=== PATIENT | female | born 1960 | race African-American/Black ===

== ENCOUNTER 2016-09-22 18:33 | Emergency (ER) | payer OTHER ==
[~2016-09-22] VITALS: Ht 170.2 cm; Wt 90.0 kg
[~2016-09-22 18:33] MED LIST: BUSP10TA2 PO; HYDR-902 PO; IBUP-1542 PO; NITR-58 PO; ONDA4TAB14 PO; QUET100T PO
[2016-09-22 18:39] VITALS: Ht 170.2 cm; Wt 90.0 kg
[2016-09-22] MEDS ORDERED: IBUP-1542 PO (19:35)
[2016-09-22] MEDS ORDERED: HYDR-902 PO (19:35)
[2016-09-22 20:01] VITALS: BP 110/70; PULSE 88; RESP 16
--- NOTE | 2016-09-22 20:29 | ERD ---
ER Documentation Chief Complaint Date/Time DATE: 09/22/16 TIME: 20:27 Chief Complaint R arm pain x 2 weeks; denies falling/injury HPI Patient is a 48-year-old female with back pain who presents with right-sided arm pain. She has had right-sided arm pain for the past 2 weeks. She is right- handed. She has pain with movement and the pain has been constant. She denies fevers or swelling. She tried ibuprofen. She has neck pain as well and feels the pain radiating from her neck into her arm. She has no trauma recently. She has not called her primary doctor for this as of yet. Upon review of old medical records the patient one previous visit to the ER in 2016. ROS All systems reviewed and are negative except as per history of present illness. Medications Home Meds Active Scripts Hydrocodone/Acetaminophen ([place] 10-325 Tablet) 1 Each Tablet, 1 TAB PO Q6H Y for PAIN, #7 TAB Prov:MADELYN MAYER MD 09/22/16 Ibuprofen* (Motrin*) 600 Mg Tab, 600 MG PO Q8, #30 TAB Prov:MADELYN MAYER MD 09/22/16 Hydrocodone/Acetaminophen ([place] 10-325 Tablet) 1 Each Tablet, 1 TAB PO Q6H Y for PAIN, #7 TAB Prov:MADELYN MAYER MD 01/28/16 Ibuprofen* (Motrin*) 600 Mg Tab, 600 MG PO Q6H Y for PAIN AND OR ELEVATED TEMP, #30 TAB Prov:MADELYN MAYER MD 01/28/16 Ondansetron (Ondansetron Odt) 4 Mg Tab.rapdis, 4 MG PO Q6H Y for NAUSEA AND/OR VOMITING, #30 TAB Prov:MADELYN MAYER MD 01/28/16 Nitrofurantoin Monohyd Macrocr* (Macrobid*) 100 Mg Capsr, 100 MG PO BID for 7 Days, CAP Prov:MADELYN MAYER MD 01/28/16 Reported Medications Buspirone Hcl* (Buspirone Hcl*) 10 Mg Tab, 15 MG PO BID, TAB 01/28/16 Quetiapine Fumarate* (Seroquel*) 100 Mg Tablet, 600 MG PO HS Y for SLEEP, #30 TAB 01/28/16 Allergies Allergies: Coded Allergies: No Known Allergy (Unverified , 01/28/16) PMhx/Soc Anesthesia Reaction: No Hx Neurological Disorder: No Hx Respiratory Disorders: No Hx Cardiac Disorders: Yes (htn) Hx Psychiatric Problems: No Hx Miscellaneous Medical Probl: Yes (dm) Hx Alcohol Use: No Hx Substance Use: No Hx Tobacco Use: Yes Smoking Status: Light tobacco smoker FmHx Family History: No diabetes Physical Exam Vitals Vital Signs Date Time Temp Pulse Resp B/P Pulse Ox O2 Delivery O2 Flow Rate FiO2 09/22/16 20:01 88 16 110/70 99 Room Air 09/22/16 18:39 98.3 92 20 105/70 99 Physical Exam Const: No acute distress Head: Atraumatic Eyes: Normal Conjunctiva ENT: Normal External Ears, Nose and Mouth. Neck: Full range of motion..~ No meningismus. Resp: Clear to auscultation bilaterally Cardio: Regular rate and rhythm, no murmurs Abd: Soft, non tender, non distended. Normal bowel sounds Skin: No petechiae or rashes Back: No midline or flank tenderness Ext: No cyanosis, or edema, no swelling or mass or deformity noted, pulses 2 + in bilateral upper extremities Neur: Awake and alert, all nerve roots of the right upper extremity are intact without difficulty with movement, sensation intact Psych: Normal Mood and Affect Procedures/MDM Patient is a 48-year-old female presents with right upper arm pain and neck pain. I believe this is likely cervical radiculopathy. I doubt DVT or arterial ischemia. There is no sign of infection. She has had no trauma and I doubt fracture dislocation. I believe outpatient management is appropriate. The patient was to follow-up with her primary doctor within 24-48 hours. She will be given a prescription for ibuprofen and [place]. Departure Diagnosis: Primary Impression: Cervical radiculopathy Additional Impressions: Pain of right arm Bilateral arm pain Condition: Fair Patient Instructions: Radiculopathy, Cervical Referrals: [facility]UD[facility] SAUNDERS Additional Instructions: Call your primary care doctor TOMORROW for an appointment during the next 1-2 days.See the doctor sooner or return here if your condition worsens before your appointment time. MADELYN MAYER MD Sep 22, 2016 20:29
== END 2016-09-22 19:59 | disposition home or self-care (01) ==
LOC: FTE 18:33
DX: M54.12 Radiculopathy, cervical region (principal); M79.602 Pain in left arm; I10 Essential (primary) hypertension; F17.210 Nicotine dependence, cigarettes, uncomplicated
CPT/HCPCS: 99283

== ENCOUNTER 2016-10-16 13:03 | Emergency (ER) | payer OTHER ==
[~2016-10-16] VITALS: Ht 165.1 cm; Wt 89.0 kg
[2016-10-16 13:07] VITALS: Ht 165.1 cm; Wt 89.0 kg
[2016-10-16] MEDS ORDERED: KETOROLAC 60 MG INJ IM STA (13:44)
--- NOTE | 2016-10-16 15:33 | RADRPT ---
PROCEDURE: XR Cervical Spine. CLINICAL INDICATION: 56-year-old female with neck pain. TECHNIQUE: AP, lateral and odontoid views of the cervical spine were performed. The images were re viewed on a PACS workstation. COMPARISON: None. FINDINGS: The odontoid process and lateral masses are unremarkable. There is straightening of the cervical cu rvature. There is disk space narrowing with ventral and dorsal spondylosis at C3-4. There is disk space narrowing with ventral bridging osteophytes at C4-5. There is disk space narrowing with moder ate ventral and mild dorsal spondylosis at C5-6. There is moderate ventral spondylosis at C6-7. Th e neural canal, articular facets, lamina and spinous processes are normal. IMPRESSION: 1. Osteoarthritis of the cervical spine with reversal of the cervical curvature which may reflect pa raspinal musculature spasm. RPTAT:AAJJ Physician Brigette Date Time Electronically viewed and signed by Clayton Erickson Physician on 10/16/2016 15:33 AURY/
--- NOTE | 2016-10-16 15:36 | RADRPT ---
PROCEDURE: Right humerus x-ray CLINICAL INDICATION: pain TECHNIQUE: Two views of the right humerus were obtained. COMPARISON: None FINDINGS: There is normal mineralization. Two K-wires and a cerclage wire traverse the proximal ulna / olecranon. No acute fracture, dislocation, or joint effusion is seen. IMPRESSION: 1. Two K-wires and a cerclage wire traverse the proximal ulna / olecranon. 2. No acute fracture, dislocation, or joint effusion is seen. RPTAT: QQ Physician Erica Date Time Electronically viewed and signed by Physician Erica on 10/16/2016 15:35 RC/
[2016-10-16] MEDS ORDERED: TRAM50TA2 PO (15:41)
--- NOTE | 2016-10-16 16:43 | ERD ---
ER Documentation Chief Complaint Date/Time DATE: 10/16/16 TIME: 16:38 Chief Complaint Complains of arm pain x 4 weeks HPI This is a 56-year-old female that presents to the ER with right arm pain that started a month ago. Patient came to the ER and was sent home with [place], she states that she still continues to feel the pain across her upper arm. Patient states that it is difficult for her to comb her hair. Patient denies any shoulder pain. She does admit to some minor continued neck pain. Patient denies any trauma to her neck, shoulder, elbow. Patient denies any numbness or tingling of her upper extremity. She denies any fevers or chills. It is constant and described as throbbing in quality it is nonradiating. ROS 12 point review of systems was done, all negative except per HPI. Medications Home Meds Active Scripts Tramadol HCl (Tramadol HCl) 50 Mg Tablet, 50 MG PO Q4 Y for PAIN, #20 TAB Prov:CORONA DIOP 10/16/16 Hydrocodone/Acetaminophen ([place] 10-325 Tablet) 1 Each Tablet, 1 TAB PO Q6H Y for PAIN, #7 TAB Prov:MADELYN MAYER MD 09/22/16 Ibuprofen* (Motrin*) 600 Mg Tab, 600 MG PO Q8, #30 TAB Prov:MADELYN MAYER MD 09/22/16 Hydrocodone/Acetaminophen ([place] 10-325 Tablet) 1 Each Tablet, 1 TAB PO Q6H Y for PAIN, #7 TAB Prov:MADELYN MAYER MD 01/28/16 Ibuprofen* (Motrin*) 600 Mg Tab, 600 MG PO Q6H Y for PAIN AND OR ELEVATED TEMP, #30 TAB Prov:MADELYN MAYER MD 01/28/16 Ondansetron (Ondansetron Odt) 4 Mg Tab.rapdis, 4 MG PO Q6H Y for NAUSEA AND/OR VOMITING, #30 TAB Prov:MADELYN MAYER MD 01/28/16 Nitrofurantoin Monohyd Macrocr* (Macrobid*) 100 Mg Capsr, 100 MG PO BID for 7 Days, CAP Prov:MADELYN MAYER MD 01/28/16 Reported Medications Buspirone Hcl* (Buspirone Hcl*) 10 Mg Tab, 15 MG PO BID, TAB 01/28/16 Quetiapine Fumarate* (Seroquel*) 100 Mg Tablet, 600 MG PO HS Y for SLEEP, #30 TAB 01/28/16 Allergies Allergies: Coded Allergies: No Known Allergy (Unverified , 10/16/16) PMhx/Soc Anesthesia Reaction: No Hx Neurological Disorder: No Hx Respiratory Disorders: No Hx Cardiac Disorders: Yes (htn) Hx Psychiatric Problems: Yes (SCHIZOPHRENIA ) Hx Miscellaneous Medical Probl: Yes (dm) Hx Alcohol Use: No Hx Substance Use: No Hx Tobacco Use: Yes Smoking Status: Never smoker Physical Exam Vitals Vital Signs Date Time Temp Pulse Resp B/P Pulse Ox O2 Delivery O2 Flow Rate FiO2 10/16/16 13:07 98.4 94 20 120/66 99 Physical Exam GENERAL: The patient is well developed and appropriate for usual state of health , in no apparent distress. HEENT: Atraumatic. Neck: Patient is not tender to palpation along the C-spine, no crepitus no step- offs. No ecchymosis or areas of deformity. CHEST: Clear to auscultation bilaterally. There are no rales, wheezes or rhonchi. HEART: Regular rate and rhythm. No murmurs, clicks, rubs or gallops. ABDOMEN: Soft, nontender and nondistended. Good bowel sounds. No rebound or guarding. No gross peritonitis. No gross organomegaly or masses. No Mcfarland sign or McBurney point tenderness. BACK: No midline or flank tenderness. EXTREMITIES: Equal pulses bilaterally. There is no peripheral clubbing, cyanosis or edema. No focal swelling or erythema. Full range of motion. Grossly neurovascularly intact. Patient is tender to palpation to the proximal right humerus. She has full and nonpainful range of motion of the shoulder. Negative drop arm test. NEURO: Alert and oriented. Cranial nerves II through XII are intact. Motor strength in all 4 extremities with 5/5 strength. Sensation grossly intact. Normal speech and gait. SKIN: There is no apparent rash or petechia. The skin is warm and dry. Results 24 hrs Current Medications Medications (Trade) Dose Ordered Sig/Johnna Route PRN Reason Start Time Stop Time Status Last Admin Dose Admin Ketorolac Tromethamine (Toradol) 60 mg ONCE STAT IM 10/16/16 13:44 10/16/16 13:45 DC 10/16/16 14:20 [facility] [id number] [place] [id number] Radiology Main Line: [phone] DIAGNOSTIC IMAGING REPORT Patient: AGUSTIN BURGOS : 1960 Age: 56 Sex: F MR #: [id number] DOS: 10/16/16 0000 Ordering MD: CORONA DIOP PA-C Location: [facility] Room/Bed: PROCEDURE: XR Cervical Spine. CLINICAL INDICATION: 56-year-old female with neck pain. TECHNIQUE: AP, lateral and odontoid views of the cervical spine were performed. The images were reviewed on a PACS workstation. COMPARISON: None. FINDINGS: The odontoid process and lateral masses are unremarkable. There is straightening of the cervical curvature. There is disk space narrowing with ventral and dorsal spondylosis at C3-4. There is disk space narrowing with ventral bridging osteophytes at C4-5. There is disk space narrowing with moderate ventral and mild dorsal spondylosis at C5-6. There is moderate ventral spondylosis at C6-7. The neural canal, articular facets, lamina and spinous processes are normal. IMPRESSION: 1. Osteoarthritis of the cervical spine with reversal of the cervical curvature which may reflect paraspinal musculature spasm. RPTAT:AAJJ Physician Brigette Date Time Electronically viewed and signed by Clayton Erickson Physician on 10/16/2016 15:33 JM/ CC: CORONA DIOP [place] [id number] Radiology Main Line: [phone] DIAGNOSTIC IMAGING REPORT Patient: AGUSTIN BURGOS : 1960 Age: 56 Sex: F MR #: [id number] DOS: 10/16/16 0000 Ordering MD: CORONA DIOP PA-C Location: [facility] Room/Bed: PROCEDURE: Right humerus x-ray CLINICAL INDICATION: pain TECHNIQUE: Two views of the right humerus were obtained. COMPARISON: None FINDINGS: There is normal mineralization. Two K-wires and a cerclage wire traverse the proximal ulna / olecranon. No acute fracture, dislocation, or joint effusion is seen. IMPRESSION: 1. Two K-wires and a cerclage wire traverse the proximal ulna / olecranon. 2. No acute fracture, dislocation, or joint effusion is seen. RPTAT: QQ Physician Erica Date Time Electronically viewed and signed by Physician Erica on 10/16/2016 15: 35 RC/ CC: CORONA DIOP Procedures/MDM This is a 56-year-old female that presents to the ER with right arm pain over the last month. Suspicion for fracture dislocation is low as x-ray is normal. Patient is neurovascularly intact and has full range of motion of her arm. Patient is afebrile and well-appearing suspicion for septic arthritis, septic joint, acute compartment syndrome, osteomyelitis is low. Patient has very minor neck pain, she does have osteoarthritis of her neck, I doubt spinal cord syndrome, transverse myelitis. Patient will be sent home with tramadol. She is to follow-up with her primary care doctor, possibly request an MRI. Patient needs to return to ER sooner if symptoms worsen. Patient understands and agrees with plan. Departure Diagnosis: Primary Impression: Arm pain, right Condition: Stable Patient Instructions: Neck Pain, No Trauma Additional Instructions: Call your primary care doctor TOMORROW for an appointment during the next 1-2 days.See the doctor sooner or return here if your condition worsens before your appointment time. CORONA DIOP Oct 16, 2016 16:43
== END 2016-10-16 15:48 | disposition home or self-care (01) ==
LOC: FTE 13:03
DX: M79.601 Pain in right arm (principal); I10 Essential (primary) hypertension; E11.9 Type 2 diabetes mellitus without complications
CPT/HCPCS: 72040; 73060; 96372; 99284; J1885